=== PATIENT | female | born 1985 | race Caucasian/White ===

== ENCOUNTER 2018-04-01 11:47 | Emergency (ER) | payer MEDICAID, OTHER ==
[~2018-04-01] VITALS: Ht 162.6 cm; Wt 56.7 kg
[~2018-04-01 11:47] MED LIST: IRON18TA
[2018-04-01 12:20] LABS: APPEARANCE,URINE Slightly Cloudy (CLEAR); BILIRUBIN,URINE SMALL (NEGATIVE); BLOOD, URINE Moderate Ery/uL (NEGATIVE); KETONES,URINE Trace (NEGATIVE); LEUKOCYTE ESTERASE ,URINE Negative (NEGATIVE); NITRITE, URINE Negative (NEGATIVE); PH,URINE 6.5 (5.0-8.0); PROTEIN,URINE 30 mg/dl (NEGATIVE); UGLUCOSE Negative (NEGATIVE)
--- NOTE | 2018-04-01 12:20 | NUR ---
dysuria x 1 month, blood noted upon wiping today. PT SEEN & EVAL'D BY REKHA QUEVEDO. PT STABLE NAD NOTED @ THIS TIME.
[2018-04-01 12:21] LABS: COLOR,URINE Dark Yellow (YELLOW)
[2018-04-01 12:28] LABS: BACTERIA,URINE Rare /HPF (None Seen); MUCUS,URINE Few /LPF (None Seen); RBC,URINE 15-20 /HPF (0-2); SQUAMOUS EPITHELIAL CELL,UR Moderate /HPF (None Seen)
[2018-04-01 12:49] VITALS: BP 120/78
== END 2018-04-01 12:50 | disposition home or self-care (01) ==
LOC: ER 11:48
DX: N39.0 Urinary tract infection, site not specified (principal); Z98.51 Tubal ligation status; Z88.8 Allergy status to other drugs, medicaments and biological substances
CPT/HCPCS: 81001; 84703; 99284; A4606; Z7610; 81000-TC

== ENCOUNTER 2018-12-24 08:49 | Emergency (ER) | payer MEDICAID ==
[~2018-12-24] VITALS: Ht 157.5 cm; Wt 52.6 kg
[2018-12-24 08:53] VITALS: BP 130/77
[2018-12-24] MEDS ORDERED: IBUPROFEN 400 MG TABLET ONE (09:09)
[2018-12-24] MEDS ORDERED: IBUPROFEN 400 MG TABLET PO ONE (09:30)
--- NOTE | 2018-12-24 09:58 | NUR ---
Patient discharged to home in stable condition. Written and verbal after care instructions given. Patient verbalizes understanding of instruction.
== END 2018-12-24 09:57 | disposition home or self-care (01) ==
LOC: ER 08:49
DX: S23.41XA Sprain of ribs, initial encounter (principal); Z88.8 Allergy status to other drugs, medicaments and biological substances; Z98.890 Other specified postprocedural states; X58.XXXA Exposure to other specified factors, initial encounter; Y93.89 Activity, other specified; Y92.89 Other specified places as the place of occurrence of the external cause; Y99.8 Other external cause status
CPT/HCPCS: 71045-TC

== ENCOUNTER 2019-10-06 08:55 | Emergency (ER) | payer MEDICAID ==
[~2019-10-06] VITALS: Ht 157.5 cm; Wt 52.2 kg
[2019-10-06 09:30] VITALS: BP 124/87
[2019-10-06] MEDS ORDERED: KETOROLAC TROMETHAMINE INJ 30 MG/ML VIAL ONE (10:20)
--- NOTE | 2019-10-06 10:24 | NUR ---
PATIENT DENIES BEING , PER PATIENT SHE "HAD HER TUBES TIED, AND HAVENT HAD SEX FOR MONTHS."TORADOL GIVEN.
[2019-10-06] MEDS ORDERED: KETOROLAC TROMETHAMINE INJ 60 MG/2 ML VIAL IM ONE (10:30)
== END 2019-10-06 10:32 | disposition home or self-care (01) ==
LOC: ER 09:04
DX: M54.5 Low back pain (principal); Z88.8 Allergy status to other drugs, medicaments and biological substances; Z98.890 Other specified postprocedural states
CPT/HCPCS: 96372; 99283; J1885

== ENCOUNTER 2023-05-22 09:55 | Emergency (ER) | payer MEDICAID ==
[~2023-05-22] VITALS: Ht 157.5 cm; Wt 62.6 kg
[2023-05-22] MEDS ORDERED: hydrOXYzine PAMOATE 50 MG CAPSULE PO ONE (11:00)
[2023-05-22] MEDS ORDERED: hydrOXYzine PAMOATE 25 MG CAPSULE PO ONE (11:30)
[2023-05-22] MEDS ORDERED: HYDR-3895 PO (13:08)
[2023-05-22 13:33] VITALS: BP 110/75; TEMP 98.4; O2SAT 97
== END 2023-05-22 13:15 | disposition home or self-care (01) ==
LOC: ER 10:00
DX: R07.9 Chest pain, unspecified (principal); F43.0 Acute stress reaction
CPT/HCPCS: 99283; 71045; 93005; Q0177 ×2